=== PATIENT | female | born 1980 | race Caucasian/White ===

== ENCOUNTER → 2023-09-11 08:17 | Outpatient (REF) | payer OTHER, SELFPAY | LOC: RAD 08:17 | PROVIDERS: ATTENDING PHYSICIAN Obstetrics & Gynecology; FAMILY PHYSICIAN Physician Assistant | DX: R10.2 Pelvic and perineal pain (principal) | CPT/HCPCS: 76830; 76856 ==

== ENCOUNTER → 2023-09-17 06:29 | Day surgery (SDC) | payer OTHER, SELFPAY | LOC: GI 06:29 | PROVIDERS: ATTENDING PHYSICIAN Internal Medicine Gastroenterology | DX: R10.9 Unspecified abdominal pain (principal); R19.4 Change in bowel habit; K64.8 Other hemorrhoids; K44.9 Diaphragmatic hernia without obstruction or gangrene; K31.89 Other diseases of stomach and duodenum | CPT/HCPCS: 45380; 43239; 88305; 88342 ==

== ENCOUNTER → 2023-09-19 15:16 | Outpatient (REF) | payer OTHER, SELFPAY | LOC: HWWDC 15:16 | PROVIDERS: ATTENDING PHYSICIAN Obstetrics & Gynecology; FAMILY PHYSICIAN Physician Assistant | DX: Z12.31 Encounter for screening mammogram for malignant neoplasm of breast (principal) | CPT/HCPCS: 77063; 77067 ==

== ENCOUNTER → 2023-10-25 10:05 | Outpatient (REF) | payer OTHER, SELFPAY | LOC: MRI 3T 10:05 | PROVIDERS: ATTENDING PHYSICIAN Obstetrics & Gynecology; FAMILY PHYSICIAN Physician Assistant | DX: N80.30 Endometriosis of pelvic peritoneum, unspecified (principal); N80.9 Endometriosis, unspecified; R10.2 Pelvic and perineal pain | CPT/HCPCS: 72197; A9575 ==

== ENCOUNTER → 2023-11-15 06:20 | Day surgery (SDC) | payer OTHER, SELFPAY ==
[2023-11-11 07:17] VITALS: BMI 23.1
[2023-11-11 09:21] LABS: % Eosinophils 4.5 % (0-6); % Immature Granulocytes 0.3 % (0-0.5); % Lymphocytes 35.8 % (20.5-51.1); % Monocytes 7.5 % (1.7-9.3); % Neutrophils 50.9 % (42.2-75.2); Absolute Eosinophils 0.2 10^3/uL (0-0.7); Absolute Lymphocytes 1.4 10^3/uL (1.2-3.4); Absolute Monocytes 0.3 10^3/uL (0.1-0.6); Hematocrit 38.7 % (37.0-47.0); Hemoglobin 13.1 g/dL (12.0-16.0); Mean Corp Hgb Conc. 33.9 g/dL (33.0-37.0); Mean Corpuscular Hgb 32.3 pg (27.0-31.0); Mean Corpuscular Volume 95.6 fL (81.0-99.0); Mean Platelet Volume 10.2 fL (7.4-10.4); Nucleated Red Blood Cells % 0 %; Platelet Count 196 10^3/uL (130-400); Red Blood Cell Count 4.05 10^6/uL (4.20-5.40); Red Cell Dist. Width 12.3 % (11.5-14.5)
[2023-11-11 10:01] LABS: Blood Urea Nitrogen 14 mg/dl (7-17); Carbon Dioxide 27 mmol/L (22-30); Chloride 101 mmol/L (98-107); Estimated Creatinine Clearance 87 ml/min; Glucose 89 mg/dl (70-99); Potassium 4.3 mmol/L (3.5-5.1); Sodium 137 mmol/L (135-145); eGFR > 60.00
[2023-11-11 16:54] LABS: Beta HCG Quantitative < 2.39 mIU/ml
[2023-11-15] VITALS (12 sets, daily range): BP systolic 92–108; BP diastolic 55–65; BMI 23.1
[2023-11-15] MEDS: NORMOSOL-R 1000 IV (09:48)
[2023-11-15] MEDS: DILAUDID 0.25 MG IV ×2 (13:00→13:50)
[2023-11-15] MEDS: ROXICODONE 5 MG PO (14:36)
--- NOTE | 2023-11-15 17:46 | W.IMMPOSTOP ---
Surgical Immed Post Op Note
-
Primary Surgeon: Opal Beatty DO
Oxyacetylene Cutter: RADHA Yousif
Pre-op Diagnosis: Severe pelvic pain, history endometriosis
Post-op Diagnosis: same; left ovarian cysts, pelvic adhesions, endometriosis
Procedure Performed: Robotic diagnostic laparoscopy with fulgeration endometriosis, lysis of adhesions
Anesthesia Type: general ET Dr. Hu
Specimen / Cultures: none
Estimated Blood Loss: 5ml
Urine: clear yellow
Complications: none
Operative Findings: Filmy adhesions tenting up sigmoid colon to left side of abdominal wall-lysed. Left ovary with a 2.5cm and 2.0 cm simple cysts. Left ovary was adherent to left pelvic side wall with mild adhesions which were lysed. Adhesions
mostly thin and filmy but involved 75% of ovary. Right ovary with small corpus luteal cyst. Surgically absent uterus and fallopian tubes. Normal appearing appendix.
Counts correct times 2.
Stable to recovery.
== END ==
LOC: SDS 06:20
PROVIDERS: ATTENDING PHYSICIAN Obstetrics & Gynecology; FAMILY PHYSICIAN Physician Assistant
DX: N80.8 Other endometriosis (principal); N73.6 Female pelvic peritoneal adhesions (postinfective); Z90.710 Acquired absence of both cervix and uterus
CPT/HCPCS: 58662; 80048; 84702; 85025; 86850; 86900; 86901

== ENCOUNTER → 2023-12-17 13:54 | Outpatient (REF) | payer OTHER, SELFPAY | LOC: WDC 13:54 | PROVIDERS: ATTENDING PHYSICIAN Obstetrics & Gynecology; FAMILY PHYSICIAN Physician Assistant | DX: R92.2 Inconclusive mammogram (principal) | CPT/HCPCS: 76641 ==

== ENCOUNTER 2024-05-20 13:44 | Emergency (ER) | payer OTHER, SELFPAY ==
[2024-05-20 13:52] VITALS: BP 97/68
[2024-05-20 14:00] VITALS: BP 101/54
[2024-05-20 14:33] LABS: % Basophils 0.9 % (0-2); % Immature Granulocytes 0.2 % (0-0.5); % Lymphocytes 31.6 % (20.5-51.1); % Monocytes 8.1 % (1.7-9.3); % Neutrophils 53.2 % (42.2-75.2); Absolute Eosinophils 0.3 10^3/uL (0-0.7); Absolute Lymphocytes 1.4 10^3/uL (1.2-3.4); Absolute Monocytes 0.4 10^3/uL (0.1-0.6); Absolute Neutrophils 2.3 10^3/uL (1.4-6.5); Hematocrit 35.8 % (37.0-47.0); Hemoglobin 12.2 g/dL (12.0-16.0); Mean Corp Hgb Conc. 34.1 g/dL (33.0-37.0); Mean Corpuscular Hgb 32.4 pg (27.0-31.0); Mean Platelet Volume 9.6 fL (7.4-10.4); Nucleated Red Blood Cells % 0 %; Platelet Count 198 10^3/uL (130-400); Red Blood Cell Count 3.77 10^6/uL (4.20-5.40); Red Cell Dist. Width 12.8 % (11.5-14.5); White Blood Cell Count 4.3 10^3/uL (4.8-10.8)
[2024-05-20 14:44] LABS: HCG, Serum Qualitative Screen Negative
[2024-05-20 14:48] LABS: ALT (SGPT) 14 U/L (0-35); AST (SGOT) 23 U/L (14-36); Albumin 3.8 g/dl (3.5-5.0); Alkaline Phosphatase 25 U/L (38-126); Blood Urea Nitrogen 14 mg/dl (7-17); Calcium 8.9 mg/dl (8.4-10.2); Carbon Dioxide 30 mmol/L (22-30); Chloride 102 mmol/L (98-107); Glucose 127 mg/dl (70-99); Potassium 3.9 mmol/L (3.5-5.1); Sodium 136 mmol/L (135-145); Total Bilirubin 0.5 mg/dl (0.2-1.3); Total Protein 6.1 g/dl (6.3-8.2); eGFR > 60.00
--- NOTE | 2024-05-20 15:54 | ED.GENMED ---
History of Present Illness
General
Chief Complaint: Numbness
Source: patient
Exam Limitations: none
Time Seen by Provider: 05/20/24 15:42
History of Present Illness
History of Present Illness:
44-year-old female with history of migraines presents with onset of headache yesterday gradually worsening today with associated right arm numbness. The numbness is similar to her prior headaches however this is persisting longer than usual. She
also states she is mixing her words up at times. She tried Tylenol and Advil at home without relief. No associated fever or vision change.
Past History
Past History
ED Past Medical History: Hyperthyroidism, Other (hemiplegic migraines, endometriosis, UTI) and Other (ovarian cyst rupture); Negative Asthma, HTN, Hypercholesterolemia or NIDDM
ED Past Surgical History: Gynecological (hysterectomy), Tonsilectomy, Urological (Bladder polyps s/p removal, Benign) and Other (Thyroidectomy,bladder polyps s/p removal and bx all benign)
Social History
Tobacco: Vaping
Alcohol: Occasional
Drug: None
Personal:
Living: with family
Employment: Employed
Family History
Family History: Hypertension
Phy Exam
Physical Exam
Physical Exam:
General: Well-appearing female no acute respiratory distress
HEENT: Normocephalic atraumatic pupils equal round reactive to light face is symmetric
Heart: Regular rate and rhythm
Lungs: Clear no wheeze
Neurologic exam: Alert no facial asymmetry good strength no drift no dysarthria or aphasia, pupils equal round reactive to light and no nystagmus no nuchal rigidity
extremities: No cyanosis
Course
Orders/Labs/Results
Orders:
Orders
05/20/24 13:56
Test Result ONCE
05/20/24 14:11
Complete Blood Count/With Diff Urgent
Comprehensive Metabolic Panel Urgent
HCG, Serum Qualitative Screen Urgent
05/20/24 15:54
CT Head W/o Iv Contrast Urgent
Comment:
Reason For Exam: headache, left arm numbness
0.9% Sodium Chloride 1000 ml [Nss] 1,000 ml IV BOLUS
Dexamethasone Sod Phosphate [Decadron] 10 mg IV NOW STA
Diphenhydramine [Benadryl] 25 mg IV NOW STA
Metoclopramide [Reglan] 10 mg IV NOW STA
05/20/24 16:14
Lorazepam [Ativan] 0.5 mg PO NOW STA
Abnormal Lab Results
05/20/24
14:11
WBC 4.3 L 10^3/uL
(4.8-10.8)
RBC 3.77 L 10^6/uL
(4.20-5.40)
Hct 35.8 L %
(37.0-47.0)
MCH 32.4 H pg
(27.0-31.0)
Glucose 127 H mg/dl
(70-99)
Alkaline Phosphatase 25 L U/L
(38-126)
Total Protein 6.1 L g/dl
(6.3-8.2)
05/20/24 14:11
05/20/24 14:11
Vital Signs
Initial and Last Documented VS:
Initial Vital Signs
Temp Pulse Resp BP Pulse Ox
97.7 F 76 18 97/68 100
05/20/24 13:52 05/20/24 13:52 05/20/24 13:52 05/20/24 13:52 05/20/24 13:52
Last Documented Vital Signs
Temp Pulse Resp BP Pulse Ox
97.7 F 74 18 101/54 99
05/20/24 13:52 05/20/24 14:00 05/20/24 14:00 05/20/24 14:00 05/20/24 14:00
MDM/Problems Addressed
Differential Diagnosis Includes:
Headache with paresthesias of the right arm. History of migraines. Differential could include migraine variant, patient is healthy and young otherwise unlikely to be TIA but on the differential. She has no fever to suggest infectious source.
Will treat symptoms with fluids and migraine medication including Reglan Benadryl and Decadron.
Given persistence of paresthesias to the right arm associated with a headache will obtain CT of head.
*Critical Care Note
Total Time (30-74mins, 75-104mins- exclusive of procedures): Not Applicable
Update Note
Update Note:
Patient returned from CAT scan shortly after returning from CAT scan express her desire to leave. She states she wants to go home to see her kids. I explained to her that the CAT scan was not read yet she understood this. She notes minimal
improvement after medication here. I suspect migraine variant. CT was reviewed by me and is without obvious finding.
ED Attending Note
-
Portions of this chart may have been created with voice recognition software.� Occasional wrong word or��sound alike� substitutions may have occurred due to the inherent limitations of voice recognition software.
Discharge Plan
Departure
Patient Disposition: Home (Routine Discharge)
Date of Disposition: 05/20/24
Time of Disposition: 17:58
Patient with high blood pressure during this ER visit?: No
Discharge Problem:
Headache
Instructions: Migraine in adults
Prescriptions:
No Action
levothyroxine [Synthroid] 112 MCG tablet
100 mcg PO DAILY
multivitamin Tablet
1 tab PO DAILY
Zyrtec
1 tab PO DAILY
oxycodone 5 mg tablet
2.5 mg PO Q6H PRN (Reason: moderate pain) Qty: 10 0RF
Rx Instructions:
2.5mg PO Q6HR prn moderate pain; 1TAB PO Q6HR prn severe pain
Referrals:
Diana Najera PA [Family Provider] -
Activity Restrictions/Additional Instructions:
You may continue with ibuprofen or Tylenol at home. Turn if worse otherwise follow-up with your doctor
Interventions
Interventions:
*Risk Screen - Suicide Last Done: 05/20/24 14:12
*General Assessment Last Done: 05/20/24 14:12
*Neglect/Abuse Screening Last Done: 05/20/24 14:12
ED- Fall Risk Assessment Last Done: 05/20/24 14:12
*ED COVID-19 Vaccine History Last Done: 05/20/24 14:12
ED- Neurological Assessment Last Done: 05/20/24 14:12
Discharge Date and Time
Print Language: MONTSERRAT[place]
[2024-05-20] MEDS: BENADRYL 25 MG IV (16:05)
[2024-05-20] MEDS: REGLAN 10 MG IV (16:05)
[2024-05-20] MEDS: DECADRON 10 MG IV (16:06)
[2024-05-20] MEDS: NSS 1000 IV (16:06)
[2024-05-20] MEDS: ATIVAN 0.5 MG PO (16:18)
[2024-05-20 18:05] VITALS: BP 92/67
== END 2024-05-20 18:07 | disposition home or self-care (01) ==
LOC: EMR 13:44
PROVIDERS: Emergency Medicine; EMERGENCY PHYSICIAN Emergency Medicine; FAMILY PHYSICIAN Physician Assistant
DX: R51.9 Headache, unspecified (principal); E05.90 Thyrotoxicosis, unspecified without thyrotoxic crisis or storm; N80.9 Endometriosis, unspecified; F17.290 Nicotine dependence, other tobacco product, uncomplicated; Z82.49 Family history of ischemic heart disease and other diseases of the circulatory system; Z87.440 Personal history of urinary (tract) infections; Z90.710 Acquired absence of both cervix and uterus
CPT/HCPCS: 99284; 70450; 80053; 84703; 85025

== ENCOUNTER 2024-05-21 05:21 | Emergency (ER) | payer OTHER, SELFPAY ==
[2024-05-21 05:24] VITALS: BP 114/68
[2024-05-21 05:44] VITALS: BP 100/66; BMI 19.8
[2024-05-21 06:00] VITALS: BP 103/73
--- NOTE | 2024-05-21 06:16 | ED.GENMED ---
History of Present Illness
General
Chief Complaint: Numbness
Source: patient and records (Seen for migraine yesterday in ED)
Exam Limitations: none
Time Seen by Provider: 05/21/24 06:01
Nursing documentation reviewed up to this point in time: agreed with
History of Present Illness
History of Present Illness:
44-year-old male presents emergency room due to a migraine, bilateral arm heaviness, since midnight. Patient denies chest pain.
Past History
Past History
ED Past Medical History: Hyperthyroidism, Other (hemiplegic migraines, endometriosis, UTI) and Other (ovarian cyst rupture); Negative Asthma, HTN, Hypercholesterolemia or NIDDM
ED Past Surgical History: Gynecological (hysterectomy), Tonsilectomy, Urological (Bladder polyps s/p removal, Benign) and Other (Thyroidectomy,bladder polyps s/p removal and bx all benign)
Social History
Tobacco: Vaping
Alcohol: Occasional
Drug: None
Personal:
Living: with family
Employment: Employed
Family History
Family History: Hypertension
Review of Systems
Review of Systems
Allergies reviewed?: Yes
All Other Systems: Not applicable
Constitutional: Reports no symptoms
EENT: Reports no symptoms
Respiratory: Reports no symptoms
Cardiac: Reports no symptoms; Denies chest pain
ABD/GI: Reports no symptoms
: Reports no symptoms
Musculoskeletal: Reports no symptoms
Skin: Reports no symptoms
Neurological: Reports headache and numbness
Endocrine: Reports no symptoms
Hematologic/Lymphatic: Reports no symptoms
Psychiatric: Reports no symptoms
Phy Exam
Physical Exam
Physical Exam:
Physical Exam
General: no apparent distress, not acutely ill
Neck: supple. no meningeal signs. normal posterior pharynx
Heart: s1/s2 regular rate and rhythm, no murmur. equal radial
pulses.
HEENT: Pupils equal round reactive to light, EOMI
Lungs: no acute respiratory distress. clear bilaterally
Abdomen: normal bowel sounds. not tender. no CVAT
Neuro: alert and oriented. no focal neurological deficits cranial nerves II through XII intact
Skin: no rash
Psychiatric: well kept. interactive and cooperative
Extremities: no edema. no calf tenderness. negative homans. good distal pulses
Course
Orders/Labs/Results
Orders:
Orders
05/21/24 05:58
Complete Blood Count/With Diff Urgent
Comprehensive Metabolic Panel Urgent
05/21/24 06:15
Cardiac Monitoring- Treatment ONCE
IV Insert/Care/Rem.- Treatment PRN
Diphenhydramine [Benadryl] 25 mg IV NOW STA
Metoclopramide [Reglan] 10 mg IV NOW STA
05/21/24 06:17
Electrocardiogram (*1) Urgent
Reason for Study: Other
Other Reason for Exam: numbness in arms
EKG- Treatment ONCE
05/21/24 07:20
0.9% Sodium Chloride 1000 ml [Nss] 1,000 ml IV BOLUS
Ketorolac [Toradol] 15 mg IV NOW STA
Abnormal Lab Results
05/21/24
05:58
RBC 4.02 L 10^6/uL
(4.20-5.40)
MCH 32.3 H pg
(27.0-31.0)
Absolute Lymphs (auto) 0.6 L 10^3/uL
(1.2-3.4)
Neutrophils % 87.0 H %
(42.2-75.2)
Lymphocytes % 9.1 L %
(20.5-51.1)
Glucose 110 H mg/dl
(70-99)
Alkaline Phosphatase 30 L U/L
(38-126)
05/21/24 05:58
05/21/24 05:58
Vital Signs
Initial and Last Documented VS:
Initial Vital Signs
Temp Pulse Resp BP Pulse Ox
98.1 F 110 26 114/68 100
05/21/24 05:24 05/21/24 05:24 05/21/24 05:24 05/21/24 05:24 05/21/24 05:24
Last Documented Vital Signs
Temp Pulse Resp BP Pulse Ox
98.1 F 80 12 106/70 100
05/21/24 05:24 05/21/24 07:30 05/21/24 07:30 05/21/24 07:30 05/21/24 07:15
MDM/Problems Addressed
Differential Diagnosis Includes:
Migraine, CVA, radiculopathy
MDM/Problems Addressed:
44-year-old female with migraine, paresthesias. No neurologic deficits. Do not suspect aortic dissection or cervical spine injury. CVA. Stable for discharge.
*Radiology
Radiology exam reviewed: radiology read reviewed (CT head no acute findings, performed on 05/20/2024)
*Pulse Oximetry
Patient hypoxic: no
*EKG
Interpreted by ED Provider?: Yes
EKG Intrepretation Date: 05/21/24
EKG Intrepretation Time: 06:34
Interpretation: normal
Comparison EKG: no comparison EKG present
Heart Rate: 87
Rate: normal
Rhythm: sinus and sinus arrhythmia
[place]: normal axis
Interval: normal interval
QRS Pattern: normal QRS
Ischemia: no ischemia
*Press Feeder [place] Interpretation
Rate: normal
Interpretation: normal
Heart Rate: 82
Rhythm: sinus
*Critical Care Note
Total Time (30-74mins, 75-104mins- exclusive of procedures): Not Applicable
Data Reviewed
Further Testing Considered But Not Given:
lumbar puncture, MRI not indicated
Patient Management
Social determinants of health affecting care: Living situation
Escalation/DeEscalation of care consider admission/obs:
admit not indicated
ED Attending Note
-
Portions of this chart may have been created with voice recognition software.� Occasional wrong word or��sound alike� substitutions may have occurred due to the inherent limitations of voice recognition software.
Discharge Plan
Departure
Patient Disposition: Home (Routine Discharge)
Date of Disposition: 05/21/24
Time of Disposition: 08:08
Patient with high blood pressure during this ER visit?: No
Condition: Good
Discharge Problem:
Migraine
Instructions: Migraines (DC), Headache, Adult (DC), Paresthesia (DC)
Prescriptions:
No Action
levothyroxine [Synthroid] 112 MCG tablet
100 mcg PO DAILY
multivitamin Tablet
1 tab PO DAILY
Zyrtec
1 tab PO DAILY
oxycodone 5 mg tablet
2.5 mg PO Q6H PRN (Reason: moderate pain) Qty: 10 0RF
Rx Instructions:
2.5mg PO Q6HR prn moderate pain; 1TAB PO Q6HR prn severe pain
Referrals:
Diana Najera PA [Family Provider] - Call in 1-3 days for appt
Chrissy Beltran MD [Non-Admitting Privileges] - Call in 1-3 days for appt
Interventions
Interventions:
*Risk Screen - Suicide Last Done: 05/21/24 05:24
*General Assessment Last Done: 05/21/24 05:46
*Neglect/Abuse Screening Last Done: 05/21/24 05:24
*ED COVID-19 Vaccine History Last Done: 05/21/24 05:46
ED- Neurological Assessment Last Done: 05/21/24 05:44
Discharge Date and Time
Print Language: [place] ISLAND[place]
[2024-05-21 06:41] LABS: % Basophils 0.1 % (0-2); % Immature Granulocytes 0.3 % (0-0.5); % Lymphocytes 9.1 % (20.5-51.1); % Monocytes 3.5 % (1.7-9.3); Absolute Lymphocytes 0.6 10^3/uL (1.2-3.4); Absolute Monocytes 0.2 10^3/uL (0.1-0.6); Hematocrit 38.2 % (37.0-47.0); Mean Corpuscular Hgb 32.3 pg (27.0-31.0); Mean Platelet Volume 10.3 fL (7.4-10.4); Nucleated Red Blood Cells % 0 %; Platelet Count 205 10^3/uL (130-400); Red Blood Cell Count 4.02 10^6/uL (4.20-5.40); Red Cell Dist. Width 12.4 % (11.5-14.5); White Blood Cell Count 6.8 10^3/uL (4.8-10.8)
[2024-05-21 06:53] LABS: ALT (SGPT) 15 U/L (0-35); AST (SGOT) 22 U/L (14-36); Albumin 4.1 g/dl (3.5-5.0); Alkaline Phosphatase 30 U/L (38-126); Blood Urea Nitrogen 13 mg/dl (7-17); Calcium 9.2 mg/dl (8.4-10.2); Carbon Dioxide 23 mmol/L (22-30); Chloride 104 mmol/L (98-107); Estimated Creatinine Clearance 98 ml/min; Glucose 110 mg/dl (70-99); Potassium 4.3 mmol/L (3.5-5.1); Sodium 135 mmol/L (135-145); Total Bilirubin 0.6 mg/dl (0.2-1.3); Total Protein 6.5 g/dl (6.3-8.2); eGFR > 60.00
[2024-05-21] MEDS: NSS 1000 IV (07:27)
[2024-05-21] MEDS: TORADOL 15 MG IV (07:27)
[2024-05-21 07:30] VITALS: BP 106/70
== END 2024-05-21 08:12 | disposition home or self-care (01) ==
LOC: EMR 05:21
PROVIDERS: EMERGENCY PHYSICIAN Emergency Medicine; FAMILY PHYSICIAN Physician Assistant
DX: G43.909 Migraine, unspecified, not intractable, without status migrainosus (principal); F17.290 Nicotine dependence, other tobacco product, uncomplicated; Z90.710 Acquired absence of both cervix and uterus
CPT/HCPCS: 96374; 96361; 99284; 80053; 85025; 93005

== ENCOUNTER → 2024-06-18 14:11 | Outpatient (REF) | payer OTHER, SELFPAY | LOC: WDC 14:11 | PROVIDERS: ATTENDING PHYSICIAN Obstetrics & Gynecology; FAMILY PHYSICIAN Physician Assistant | DX: R92.8 Other abnormal and inconclusive findings on diagnostic imaging of breast (principal) | CPT/HCPCS: 76642 ==

== ENCOUNTER → 2024-09-24 14:27 | Outpatient (REF) | payer OTHER, SELFPAY | LOC: WDC 14:27 | PROVIDERS: ATTENDING PHYSICIAN Obstetrics & Gynecology; FAMILY PHYSICIAN Physician Assistant | DX: Z12.31 Encounter for screening mammogram for malignant neoplasm of breast (principal) | CPT/HCPCS: 77063; 77067 ==

== ENCOUNTER → 2024-10-29 13:24 | Outpatient (REF) | payer OTHER, SELFPAY | LOC: EMG 13:24 | PROVIDERS: ATTENDING PHYSICIAN Physician Assistant Surgical; FAMILY PHYSICIAN Physician Assistant | DX: M25.511 Pain in right shoulder (principal); R20.0 Anesthesia of skin | CPT/HCPCS: 95886; 95909 ==

== ENCOUNTER → 2024-12-16 08:48 | Outpatient (REF) | payer OTHER, SELFPAY | LOC: WDC 08:48 | PROVIDERS: ATTENDING PHYSICIAN Obstetrics & Gynecology; FAMILY PHYSICIAN Physician Assistant | DX: R92.2 Inconclusive mammogram (principal) | CPT/HCPCS: 76641 ==

== ENCOUNTER 2025-02-13 17:44 | Emergency (ER) | payer OTHER, SELFPAY ==
[2025-02-13 17:48] VITALS: BP 116/83
--- NOTE | 2025-02-13 19:55 | ED.GENMED ---
History of Present Illness
General
Chief Complaint: Nose Bleed
Source: patient
Exam Limitations: none
Time Seen by Provider: 02/13/25 18:25
Nursing documentation reviewed up to this point in time: agreed with
History of Present Illness
History of Present Illness:
44-year-old female past medical history of anxiety, hypothyroidism presenting to the emergency department today with concerns of nosebleed to the right side of the nose sporadically throughout the day. Has had some upper respiratory symptoms over
the past few days as well. Denies any lightheadedness chest pain shortness of breath not on any blood thinners.
Past History
Past History
ED Past Medical History: Hyperthyroidism, Other (hemiplegic migraines, endometriosis, UTI) and Other (ovarian cyst rupture); Negative Asthma, HTN, Hypercholesterolemia or NIDDM
ED Past Surgical History: Gynecological (hysterectomy), Tonsilectomy, Urological (Bladder polyps s/p removal, Benign) and Other (Thyroidectomy,bladder polyps s/p removal and bx all benign)
Social History
Tobacco: Vaping
Alcohol: Occasional
Drug: None
Personal:
Living: with family
Employment: Employed
Family History
Family History: Hypertension
Review of Systems
Review of Systems
Allergies reviewed?: Yes
All Other Systems: ROS reviewed and negative except as documented in HPI and ROS
Phy Exam
Physical Exam
Physical Exam:
GENERAL: Alert , in no apparent distress
EYE: pupils equal and reactive
NECK: Supple, no significant adenopathy.
ENT: Right nasal septum with prominent vein with small clot but no active bleed o/p clr, mmm.
CARDIAC: Regular rate and rhythm .
LUNGS: Clear breath sounds bilaterally, no acute respiratory distress, no wheezes/rales/rhonchi
ABDOMEN: Soft, without focal tenderness, no r/g, no cvat
NEUROLOGICAL: Alert and oriented, no focal neuro deficits
SKIN: Warm and dry, skin intact.
MUSCULOSKELETAL: No edema, well perfused.
PSYCH: Normal and appropriate interaction.
Course
Vital Signs
Initial and Last Documented VS:
Initial Vital Signs
Temp Pulse Resp BP Pulse Ox
98.4 F 98 18 116/83 98
02/13/25 17:48 02/13/25 17:48 02/13/25 17:48 02/13/25 17:48 02/13/25 17:48
Last Documented Vital Signs
Temp Pulse Resp BP Pulse Ox
98.4 F 98 18 116/83 98
02/13/25 17:48 02/13/25 17:48 02/13/25 17:48 02/13/25 17:48 02/13/25 17:48
Procedures
Nosebleed
Drug treatment: none, Lidocaine and Epinephrine
Treatment: Silver nitrate cautery
Post treatment bleeding: none- good control
MDM/Problems Addressed
MDM/Problems Addressed:
44-year-old female presenting to the emergency department today with concerns of right sided nosebleed was preceded by upper respiratory infection. Does have a prominent vessel to the right nasal septum that was likely the culprit of the bleeding
there is a small clot to the area. Lidocaine with epinephrine was used in the area and it was cauterized with silver nitrate with good control. Otherwise table for discharge. Return precautions given.
*Pulse Oximetry
SaO2: 98
Oxygen Mode of Delivery: Room air
Patient hypoxic: no
*Critical Care Note
Total Time (30-74mins, 75-104mins- exclusive of procedures): Not Applicable
ED Attending Note
-
Portions of this chart may have been created with voice recognition software.� Occasional wrong word or��sound alike� substitutions may have occurred due to the inherent limitations of voice recognition software.
Discharge Plan
Departure
Patient Disposition: Home (Routine Discharge)
Date of Disposition: 02/13/25
Time of Disposition: 20:08
Patient with high blood pressure during this ER visit?: No
Condition: Good
Covid-19: Not Applicable
Discharge Problem:
Acute anterior epistaxis
Instructions: Nosebleeds (DC)
Prescriptions:
No Action
levothyroxine [Synthroid] 112 MCG tablet
100 mcg PO DAILY
multivitamin Tablet
1 tab PO DAILY
Zyrtec
1 tab PO DAILY
oxycodone 5 mg tablet
2.5 mg PO Q6H PRN (Reason: moderate pain) Qty: 10 0RF
Rx Instructions:
2.5mg PO Q6HR prn moderate pain; 1TAB PO Q6HR prn severe pain
Referrals:
Joyce Hatfield PA-C [Family Provider, Family Practice]
Activity Restrictions/Additional Instructions:
You came to the emergency department today with concerns of a nosebleed. Here you had silver nitrate. Please keep the area moisturized otherwise return for any worsening, new or concerning symptoms.
Interventions
Interventions:
*Risk Screen - Suicide Last Done: 02/13/25 17:48
*General Assessment Last Done: 02/13/25 17:48
*Neglect/Abuse Screening Last Done: 02/13/25 17:48
*ED- Fall Risk Assessment Last Done: 02/13/25 17:48
*ED COVID-19 Vaccine History Last Done: 02/13/25 17:48
Discharge Date and Time
Print Language: [place]ULGAR[place]
== END 2025-02-13 20:19 | disposition home or self-care (01) ==
LOC: EMR 17:44
PROVIDERS: EMERGENCY PHYSICIAN Emergency Medicine; FAMILY PHYSICIAN Physician Assistant
DX: R04.0 Epistaxis (principal); E03.9 Hypothyroidism, unspecified; F17.290 Nicotine dependence, other tobacco product, uncomplicated
CPT/HCPCS: 30901; 99282